=== PATIENT | male | born 1950 | race Caucasian/White ===

== ENCOUNTER → 2018-01-11 | Outpatient (CLI) | payer MEDICARE, MEDICAID ==
[~2018-01-11] MED LIST: ACETAMINOPHEN-1 EAC2 ORAL; ACYCLOVIR400 MG ORAL; ALBUTEROL SULF8.5 GM INH; ALBUTEROL SULFAT2 MG PO; ASPIRIN500 MG ORAL; ATORVASTATIN CA20 MG ORAL; BACTRIM-DS1 EA ORAL; CITALOPRAM HBR20 M1 ORAL; DAILY VITAMIN1 EAC4 PO; EPZICOM1 TAB ORAL; FANAPT6 MG ORAL; ISENTRESS400 MG ORAL; LEVAQUIN500 MG ORAL; LEVAQUIN750 MG ORAL; NUVIGIL250 MG PO; OMEPRAZOLE20 M3 ORAL; PERCOCET1 TAB ORAL; PREDNISONE50 MG ORAL; RANEXA500 MG ORAL; RISPERDAL2 MG ORAL; SEROSTIM6 M1 SQ; SIMVASTATIN40 MG ORAL; TRICOR145 MG ORAL
--- NOTE | 2018-01-11 16:18 | Diagnostic Imaging Report ---
Indication: Back pain Technique: MRI examination of the Lumbar spine was performed in a 1.5 Tiera magnet. Sequences obtained include sagittal and axial T1 and T2 fast spin echo, and sagittal STIR. Comparison: none Findings: L1-2: There is disc desiccation narrowing and mild concentric disc bulge. There is no central stenosis of the canal. There is mild facet arthropathy present. L2-3: Mild concentric disc bulge and mild to moderate facet arthropathy demonstrated. Mild narrowing of the neural foramen bilaterally. No central stenosis. L3-4: Mild narrowing of the disc and moderate concentric disc bulge demonstrated. Moderate facet arthropathy demonstrated. Mild narrowing of the lateral recess due to facet arthropathy. Mild to moderate neural foraminal stenosis bilaterally probably slightly worse on the right. L4-5: Moderate concentric disc bulge with moderate narrowing desiccation of the intervertebral disc. Moderate facet arthropathy demonstrated. No central canal stenosis. Moderate bilateral foraminal stenosis. L5-S1: Posterior slightly left paracentral disc extrusion demonstrated at this level. Narrowing and desiccation of the discs noted. Slight upward subligamentous extension of disc material noted. Narrowing of the left lateral recess demonstrated with slight compression of the traversing left S1 nerve root. No significant central canal stenosis. Also there is mild bilateral foraminal stenosis. Moderate facet arthropathy demonstrated. Bone marrow signal is essentially normal. There is no malalignment or soft tissue abnormalities. IMPRESSION: Age indeterminant central to left paracentral disc extrusion at L5-S1 with slight compression of the left traversing S1 nerve root and narrowing of the left lateral recess. Moderate disc disease at this level with mild bilateral neural foraminal stenosis. L4-5: Moderate bilateral foraminal stenosis L3-4: Mild lateral recess and mild to moderate bilateral foraminal stenosis slightly worse on the right. L2-3: Mild bilateral foraminal stenosis.
--- NOTE | 2018-01-11 16:28 | Diagnostic Imaging Report ---
Indication: Right Hip and pelvis pain. 67-year-old male no history of trauma Technique: MRI examination of the pelvis and right hip was performed in a 1.5 Tiera magnet. Sequences obtained include multiplanar T1 and T2 fast spin echo, and STIR. Comparison: none Findings: There is no evidence of the a hip fracture. Bone marrow signal is essentially normal. There is some heterogeneity due to some retention of red marrow. Visualized pelvic bones demonstrate normal bone marrow signal. With regard to the right hip there is evidence of a moderate arthrosis with marginal enthesophyte formation and joint space narrowing. The acetabular labrum is not identified and presumably degenerated. There is no evidence of AVN. No joint effusion seen. The musculotendinous structures about the right hip appear unremarkable. No evidence of bursitis or tenosynovitis. There is a rounded structure in the right aspect of the scrotal sac measuring 3 cm. This appears to be an implanted device and may be a part of a penile prosthesis. Correlate clinically. There are degenerative changes of the lower lumbar spine with disc desiccation and narrowing and endplate spur formation. The inguinal canal appears asymmetric with prominence on the left, suspicious for a left inguinal hernia. IMPRESSION: Moderate arthrosis involving both hips. No evidence of a hip fracture, AVN or other acute processes. Penile prosthesis Small left inguinal hernia suspected. Correlate clinically.
== END | disposition home or self-care (01) ==
LOC: MRI 14:30
DX: M25.551 Pain in right hip (principal); R10.2 Pelvic and perineal pain; K40.90 Unilateral inguinal hernia, without obstruction or gangrene, not specified as recurrent; M16.0 Bilateral primary osteoarthritis of hip; M48.061 Spinal stenosis, lumbar region without neurogenic claudication
CPT/HCPCS: 72148

== ENCOUNTER 2019-02-21 14:21 | Outpatient (CLI) | payer MEDICARE, MEDICAID ==
[~2019-02-21 14:21] MED LIST changes: +ANORO ELLIPTA1 EACH INH; +ASPIR 8181 MG ORAL; +CELEXA10 MG ORAL; +FANAPT8 MG ORAL; +LAMOTRIGINE100 M1 PO; +LAMOTRIGINE200 MG PO; +PERCOCET 10-321 EAC1 PO
--- NOTE | 2019-02-22 16:23 | Diagnostic Imaging Report ---
Indication: Left hip pain Technique: Coronal and axial T 1 fast echo of the bilateral hips, coronal and axial bilateral hip FSE IR, sagittal, coronal, and oblique proton-density fat-saturated images obtained of the pelvis and left hip Comparison: Pelvic sequences from prior right hip study dated 01/11/2018 Findings: Degenerative changes of the left hip are noted, with subchondral cyst formation, thinning of the cartilage, and narrowing of the joint space. There is also osteophytic lipping of the acetabulum. The extent of this appears similar to the previous exam. The labrum is poorly visualized, likely degenerated. No marrow abnormality to suggest fracture or infiltrative process demonstrated. No evidence of significant joint effusion or bursitis. The greater trochanter gluteal tendon complex appears unremarkable. Incidentally noted is a penile prosthesis. Impression: Left hip degenerative changes, appearing similar to prior exam of 01/11/2018 No acute abnormality Poorly visualized labrum, likely degenerated Penile prosthesis again demonstrated This agrees with the preliminary interpretation provided by Dr. Vera
== END 2019-02-21 16:21 | disposition home or self-care (01) ==
LOC: MRI 14:21
DX: M25.552 Pain in left hip (principal); M54.12 Radiculopathy, cervical region

== ENCOUNTER → 2020-04-02 | Day surgery (SDC) | payer MEDICARE, MEDICAID ==
[2020-04-02] VITALS (15 sets, daily range): BP systolic 91–149; BP diastolic 7–84
[~2020-04-02] VITALS: Ht 180.3 cm; Wt 83.9 kg
[~2020-04-02] MED LIST changes: +ATIVAN1 MG ORAL; +Atropine Sulfate 0.4mg/ml inj IVP PRN; +Bacitracin 50000 Units Vial ONE; +D5 1/2NS 1,000 ML IV SCH; +DiphenhydrAMINE 50mg/ml Inj IVP PRN; +HYDROcodone/Acetamin 5/325 tab ORAL PRN; +HYDROcodone/Acetamin 7.5/325 tab ORAL PRN; +HYDROmorphone 1mg/ml Carpuject SUBQ PRN; +Hydromorphone 0.5mg/0.5ml inj IVP PRN; +JULUCA 50-25 M1 EACH PO; +Ketorolac 30mg Inj IV PRN; +LORazepam Inj 2mg/ml 1ml IV PRN; +LR 1000ml 1,000 ML IVLG SCH; +LR 1000ml ONE; +Labetalol 5mg/ml 20ml vial IV PRN; +Lidocaine 1% 10mg/ml/Epi 0.005mg/ml 30ml vial INJ ONE; +Lidocaine 1% MPF 10mg/ml 5ml ONE; +Meperidine 25mg/0.5ml Inj (FOR RIGORS ONLY) IV PRN; +Metoclopramide 10mg/2ml Inj IVP PRN; +Midazolam 2mg/2ml Inj IVP PRN; +Midazolam 2mg/2ml Inj ONE; +NS Irrig 1000ml ONE; +NeoSporin Gu Irrig 1ml Amp IRRIG ONE; +OXYCODONE-ACET1 EAC5 ORAL; +Sodium Chloride 10ml vial INJ ONE; +Sterile Water Irrig 1000ml IRRIG ONE; +Tylenol #3 tab (300mg/30mg) ORAL PRN; +fentaNYL 100 mcg/2 mL IV ONE; +fentaNYL 100 mcg/2 mL IV PRN; +oxyCODONE HCL/Acetaminophen 5/325mg ORAL PRN
--- NOTE | 2020-04-02 12:12 | Anethesia Preoperative Eval ---
Anesthesia Pre-op PMH/ROS General Date of Evaluation: Apr 02, 2020 Time of Evaluation: 12:08 Anesthesiologist: Angus ASA Score: ASA 3 Mallampati Score Class I : Soft palate, uvula, fauces, pillars visible Class II: Soft palate, uvula, fauces visible Class III: Soft palate, base of uvula visible Class IV: Only hard plate visible Mallampati Classification: Class II Surgeon: Marjorie Diagnosis: Left Leg Pain Surgical Procedure: Excision Lower Extremity, L Thigh Anesthesia History: none Family History: no anesthesia problems Allergies: Coded Allergies: No Known Allergies (Unverified , 03/03/13) Medications: see eMAR Patient NPO?: Yes Past Medical History Cardiovascular: Reports: HTN Pulmonary: Reports: asthma, COPD, other - Bronchitis, PNA Gastrointestinal/Genitourinary: Reports: GERD, other - HEP A&B Neurologic/Psychiatric: Reports: depression/anxiety Hematology/Immune: Reports: other - HIV/AIDS Musculoskeletal/Integumentary: Reports: other - Peripheral Neuropathy, Muscle Weakness PSxH Narrative: R Testes Removed Anesthesia Pre-op Phys. Exam Physician Exam Last Vital Signs Date Time Temp Pulse Resp B/P (MAP) Pulse Ox O2 Delivery O2 Flow Rate FiO2 04/02/20 11:50 96.6 68 18 137/74 97 Room Air Constitutional: NAD Neurologic: CN 2-12 intact Cardiovascular: RRR Respiratory: CTA Gastrointestinal: S/NT/ND Airway Exam Mallampati Score: Class II MO: full ROM: limited Teeth: missing, intact Anesthesia Pre-op A/P Risk Assessment & Plan Assessment: ASA 3 Plan: GA, SED Status Change Before Surgery: No Pre-Antibiotics Dru Grams Ancef IV Given Within 1 Hr of Incision: Yes Time Given: 12:36 Gene Brito MD Apr 02, 2020 12:11
--- NOTE | 2020-04-02 12:16 | Immediate Post-Op Evaluation ---
Immediate Post-Op Evalulation Immediate Post-Op Evalulation Procedure: Excision Lower Extremity, L Thigh Date of Evaluation: Apr 02, 2020 Time of Evaluation: 13:39 IV Fluids: 700 LR Blood Products: 0 Estimated Blood Loss: 20 Urinary Output: 0 Blood Pressure Systolic: 91 Blood Pressure Diastolic: 63 Pulse Rate: 79 Respiratory Rate: 16 O2 Sat by Pulse Oximetry: 100 Temperature (Fahrenheit): 98.4 Pain Score (1-10): 2 Nausea: No Vomiting: No Complications 0 Patient Status: awake, reacts, patent, none Hydration Status: adequate Dru grams Ancef IV Given Within 1 Hr of Incision: Yes Time Given: 12:36 Gene Brito MD Apr 02, 2020 12:16
--- NOTE | 2020-04-02 12:17 | 48 Hour Post Anesthesia Eval ---
Post Anesthesia Evaluation Procedure: Excision Lower Extremity, L Thigh Date of Evaluation: Apr 02, 2020 Time of Evaluation: 15:46 Blood Pressure Systolic: 128 0: 81 Pulse Rate: 63 Respiratory Rate: 18 Temperature (Fahrenheit): 98.5 O2 Sat by Pulse Oximetry: 100 Airway: patent Nausea: No Vomiting: No Pain Intensity: 1 Hydration Status: adequate Cardiopulmonary Status: Stable Mental Status/LOC: patient returned to baseline Follow-up Care/Observations: 0 Post-Anesthesia Complications: 0 Follow-up care needed: ready to discharge Gene Brito MD Apr 02, 2020 12:17
--- NOTE | 2020-04-02 12:31 | Pre-Procedure Note/Attestation ---
Pre-Procedure Note/Attestation Complete Prior to Procedure Procedure Narrative: excision of left thigh mass / biopsy Indications for Procedure Pre-Operative Diagnosis: left thigh mass atypical Attestation I attest that I discussed the nature of the procedure; its benefits; risks and complications; and alternatives (and the risks and benefits of such alternatives ), prior to the procedure, with the patient (or the patient's legal union representative). I attest that, if there was a reasonable possibility of needing a blood transfusion, the patient (or the patient's legal union representative) was given the [facility] standardized written summary, pursuant to the Thomas Raúl Blood Safety Act ([place] Health and Safety Code # 1645, as amended). I attest that I re-evaluated the patient just prior to the surgery and that there has been no change in the patient's H&P, except as documented below: Mau Amador Apr 02, 2020 12:31
--- NOTE | 2020-04-02 13:30 | Brief Operative Note ---
Immediate Post Operative Note Operative Note Pre-op Diagnosis: left thigh mass atypical Procedure: incisional biopsy of left thigh atypical mass Post-op Diagnosis: same as pre-op Surgeon: kiki amador md Anesthesiologist: chao johnson md Anesthesia: general, local Specimen: yes Complications: none Condition: stable Fluids: see records Estimated Blood Loss: minimal Drains: none Implant(s) used?: No Kiki Amador Apr 02, 2020 13:30
--- NOTE | 2020-04-02 16:00 | Operative Note - Dictated ---
DATE OF OPERATION: 04/02/2020 PREOPERATIVE DIAGNOSIS: Atypical left thigh mass POSTOPERATIVE DIAGNOSIS: Atypical left thigh mass, medial, mid thigh 6cm x 5cm raised. OPERATION PERFORMED: 1. Excisional biopsy of left thigh mass down to muscle en bloc 2. Left thigh fascia and muscle biopsy along with mass 3. Adjacent tissue transfer with fascial and skin flap for tension-free complex primary closure ATTENDING SURGEON: Mau Amador MD. MATERIAL DISPATCHER: None. ANESTHESIOLOGIST: Gene Brito MD. ANESTHESIA: General GETA plus local. ESTIMATED BLOOD LOSS: Minimal. IV FLUIDS: Please see anesthesia records. COMPLICATIONS: None. DRAINS: None. COUNTS: Sponge and needle count correct x2. WOUND CLASSIFICATION: Class 1. ANTIBIOTICS: 2 g Ancef. SPECIMENS: Sent to pathology for review. INDICATIONS FOR PROCEDURE: This is a 69-year-old male, who for some time now has identified a left thigh mass with superficial skin lesion initially noted to be small years ago, which time he received laser hair therapy and laser treatment in hopes of eliminating the atypical skin abnormality, but over years, it has grown and become large and at times draining. He was referred to me by his primary care physician who astutely identified an atypical abnormal mass in the left mid thigh medial anterior aspect and the patient was seen in the office and identified to have atypical mass Which was concerning and mass was fairly superficial in nature on examination. Therefore, decision was made to proceed with an surgical intervention, but given patient's history, condition, and well-being, decision was made to perform in operating room given location and to ensure patient's comfort and safety. Consent was obtained. The patient was scheduled for 04/02/2020. OPERATIVE NOTE: Patient was taken to the operating room and placed on the operating table in supine position with bilateral arms out. All bony prominences were well padded. SCDs placed. Preoperative time-out taken identifying the patient, procedure, operative site, and surgical staff. General anesthesia was induced. The patient was intubated with LMA. The left thigh was prepped and draped in standard surgical fashion. An elliptical incision was made around the skin lesion. Local anesthetic was infiltrated. Incision was made and the abnormal tissue was identified. Once making the incision, it was then identifiable that this abnormality extended through the subcutaneous tissue towards down to the fascia and deep to the fascia into muscle. Fascial and muscle excision was planned and the tissue was identified to be going through the muscle. A portion of muscle and the stalk of the abnormality were excised. clips applied for anatomic marking at the stalk. The orientation of the biopsy was made and sent to pathology for review. Wound bed was irrigated. Fascia flap was made medially and laterally superior and inferiorly to allow for appropriate closure without tension. A relaxing incision was made on the anterior aspect of the fascia overlying the quads. the fascia was was then reapproximated using 2-0 Vicryl sutures. Skin and subcutaneous skin flaps were then made to allow for tension-free approximation over the fascia and the subcutaneous tissue was reapproximated using 3-0 Vicryl sutures and reapproximation of the skin incision using 4-0 Monocryl running subcuticular suture. In total, the size of the excision was approximately 5 cm x 6 cm x 3 cm deep. The patient tolerated the procedure well, was extubated, and was taken to postanesthesia care unit in stable condition. Mau Amador M.D. DR: MAYURI JOB#: [id number] CC: HECTOR
== END | disposition home or self-care (01) ==
LOC: SUR 10:49
DX: R22.42 Localized swelling, mass and lump, left lower limb (principal); L98.9 Disorder of the skin and subcutaneous tissue, unspecified; I10 Essential (primary) hypertension; J44.9 Chronic obstructive pulmonary disease, unspecified; K21.9 Gastro-esophageal reflux disease without esophagitis; B20 Human immunodeficiency virus [HIV] disease; G62.9 Polyneuropathy, unspecified; Z86.19 Personal history of other infectious and parasitic diseases
CPT/HCPCS: 11106; 11107; J0690; J1100; J1885; J2250; J2405; J2704; J3010; J7120; U0002

== ENCOUNTER 2020-07-06 16:46 | Emergency (ER) | payer MEDICAID, MEDICARE ==
[~2020-07-06] VITALS: Ht 182.9 cm; Wt 86.2 kg
[~2020-07-06 16:46] MED LIST changes: -Atropine Sulfate 0.4mg/ml inj IVP PRN; -Bacitracin 50000 Units Vial ONE; -D5 1/2NS 1,000 ML IV SCH; -DiphenhydrAMINE 50mg/ml Inj IVP PRN; -HYDROcodone/Acetamin 5/325 tab ORAL PRN; -HYDROcodone/Acetamin 7.5/325 tab ORAL PRN; -HYDROmorphone 1mg/ml Carpuject SUBQ PRN; -Hydromorphone 0.5mg/0.5ml inj IVP PRN; -Ketorolac 30mg Inj IV PRN; -LORazepam Inj 2mg/ml 1ml IV PRN; -LR 1000ml 1,000 ML IVLG SCH; -LR 1000ml ONE; -Labetalol 5mg/ml 20ml vial IV PRN; -Lidocaine 1% 10mg/ml/Epi 0.005mg/ml 30ml vial INJ ONE; -Lidocaine 1% MPF 10mg/ml 5ml ONE; -Meperidine 25mg/0.5ml Inj (FOR RIGORS ONLY) IV PRN; -Metoclopramide 10mg/2ml Inj IVP PRN; -Midazolam 2mg/2ml Inj IVP PRN; -Midazolam 2mg/2ml Inj ONE; -NS Irrig 1000ml ONE; -NeoSporin Gu Irrig 1ml Amp IRRIG ONE; -Sodium Chloride 10ml vial INJ ONE; -Sterile Water Irrig 1000ml IRRIG ONE; -Tylenol #3 tab (300mg/30mg) ORAL PRN; -fentaNYL 100 mcg/2 mL IV ONE; -fentaNYL 100 mcg/2 mL IV PRN; -oxyCODONE HCL/Acetaminophen 5/325mg ORAL PRN
--- NOTE | 2020-07-06 16:50 | NUR ---
ED Nurse Note: pt arrives via [facility] from home after sustaining a slip and fall while going up steps. no head trauma per ems. pt c/o left forearm, left leg/knee pain down to ankle. c/o neck pain. pt able to ambulate upon ems arrival. pt a/ox4 at triage. pt eval by md upon arrival
--- NOTE | 2020-07-06 16:58 | Emergency Room Report ---
History of Present Illness General Chief Complaint: Multiple Trauma/Fall Source: Patient Present Illness HPI Disclaimer: Please note that this report is being documented using [employer] technology. This can lead to erroneous entry secondary to incorrect interpretation by the dictating instrument. HPI: 69-year-old male presents for evaluation after a fall. He is complaining of neck pain and left knee pain. Patient slipped on wet wooden stairs going up to his neighbors porch. Denies loss of conscious. Unsure whether or not he hit his head. He is complaining of pain mostly on the left and right side of his neck and upper shoulders. States pain is exacerbated by bending or twisting his neck. Also complaining pain over the medial aspect of the left knee. Denies prior surgery or injury to that knee. Originally complaining of pain over the right ankle but this is improved. He was ambulatory for EMS on their arrival. Vital signs were stable en route. No seizure activity reported. He is not take anticoagulants. PMH: Reviewed PSH: Reviewed Allergies: Reviewed Social Hx: Reviewed Allergies: Coded Allergies: No Known Allergies (Unverified , 03/03/13) COVID-19 Screening Contact w/high risk pt: No Experienced COVID-19 symptoms?: No COVID-19 Testing performed CONSULTATIVE SALES ASSOCIATE: No Nursing Documentation-PMH Past Medical History: No History, Except For Hx Cardiac Problems: Yes - HIV since 1990 Hx Hypertension: No - PNA Hx Pacemaker: No Hx Asthma: Yes Hx COPD: Yes Hx Diabetes: No Hx Cancer: Yes - Skin CA ; back in 1995, face 5 years ago Hx Gastrointestinal Problems: Yes - GERD Hx Dialysis: No Hx Neurological Problems: Yes - peripheral Neuropathy Hx Cerebrovascular Accident: No Hx Seizures: No Hx Peripheral Neuropathy: Yes Hx Headaches: Yes Hx Weakness: Yes Hx Fatigue: Yes Review of Systems All Other Systems: negative except mentioned in HPI Physical Exam Vital Signs Date Time Temp Pulse Resp B/P (MAP) Pulse Ox O2 Delivery O2 Flow Rate FiO2 07/06/20 16:45 98.1 82 17 130/90 (103) 99 Room Air General: Awake and alert, no acute distress HEENT: NC/AT. EOMI. Cardiovascular: RRR. S1 and S2 normal. No murmur appreciated Resp: Normal work of breathing. No cough, wheezing or crackles appreciated Abdomen: Abdomen is soft, nondistended. Nontender Skin: Intact. No abrasions, laceration or rash over the exposed skin MSK: Normal tone and bulk. Moving all extremities. No obvious deformity. Left knee is in anatomic position with no overlying edema erythema skin breakdown. There is tenderness palpation over the medial aspect of the knee without laxity. No tenderness over the posterior aspect of the medial or lateral malleolus of the right ankle. Able to flex and extend. No midfoot tenderness. Neuro: Awake and alert. Mentating appropriately. Spine: Mild tenderness in the lower cervical spine without palpable deformity. No significant tenderness in the thoracic spine. Moderate paraspinal tenderness extending over the trapezius muscles bilaterally. Medical Decision Making Diagnostic Impression: Primary Impression: Cervical paraspinal muscle spasm Additional Impressions: Herniated cervical disc Spondylolisthesis Knee contusion ER Course Is a 69-year-old male presenting for evaluation of neck pain and knee pain after a fall from standing. Concern for intracranial spinal injury as well as possible osseous injury to the right knee. CT scans of the head and cervical spine were obtained as well as x-ray of the left knee. The right ankle does not show signs of significant injury and does not require imaging according to [place] ankle rules. No intracranial injury was identified. In the cervical spine there is no fracture or malalignment but there was straightening of the cervical spine consistent with patient's exam. There was noted to be multilevel spondylosis and degenerative disc changes with disc herniation consistent the patient's history. He states he is or chronic. Patient is neurologically intact. His exam and imaging is most consistent with cervical strain and spasm. No fracture identified in the knee. Likely contusion. Will treat with Tylenol, Motrin, Robaxin and lidocaine patches. Patient given copies of his CT to discuss with his PMD. He received analgesics and lidocaine patches in the emergency department. Reports feeling much better. Ambulating without difficulty. Stable for outpatient follow-up. Instructed to return with new or worsening symptoms. He understands and agrees with the treatment plan. Other X-Ray Diagnostic Results Other X-Ray Diagnostic Results : X-Ray ordered: Left knee # of Views/Limited Vs Complete: Complete Indication: Pain EP Interpretation: Yes Interpretation: no dislocation, no soft tissue swelling, no fractures, other - Scattered calcifications Impression: No acute disease Electronically Signed by: Electronically signed by Dr. Massimo Salgado MD CT/MRI/US Diagnostic Results CT/MRI/US Diagnostic Results : Impression Final Report History: INJ Exam: CT HEAD Without Contrast Technique more: CTDI is 53.4 mGy and DLP is 1045.5 mGy-cm. Technique more: One or more of the following dose reduction techniques were used: automated exposure control, adjustment of the mA and/or kV according to patient size, use of iterative reconstruction technique. Comparison: FINDINGS: No intracranial hemorrhage, mass effect or calvarial fracture. The ventricles are within limits and midline. Visualized paranasal sinuses, mastoids and orbits appear within limits. Convexity scalp soft tissue swelling. IMPRESSION: No intracranial hemorrhage, mass effect or calvarial fracture. Convexity scalp soft tissue swelling. Radiologist: Mendoza Carter M.D. Electronically Signed: 07/06/20 17:53 Study ready at 17:35 and initial results transmitted at 17:53 Final Report History: INJ Exam: CT C SPINE Without Contrast Technique more: CTDI is 20.2 mGy and DLP is 614.0 mGy-cm. Technique more: One or more of the following dose reduction techniques were used: automated exposure control, adjustment of the mA and/or kV according to patient size, use of iterative reconstruction technique. Comparison: FINDINGS: No fracture or malalignment. Straightening may represent position or spasm. No evidence of prevertebral swelling. Multilevel spondylosis/discogenic change with posterior disc osteophyte complexes and bilateral foraminal narrowing. Appearance of a left paracentral disc herniation at C3-4 measuring approximately 1 cm width, 6 mm AP dimension and 1.1 cm CC dimension axial 51 and sagittal 54, clinically correlate. Very small central disc protrusion suggested C4-5. Bilateral left more than right carotid calcific plaque formation noted. Apical emphysema and pleuroparenchymal scarring at the visualized apices. IMPRESSION: No fracture or malalignment. Straightening may represent position or spasm. No evidence of prevertebral swelling. Multilevel spondylosis/discogenic change with posterior disc osteophyte complexes and bilateral foraminal narrowing. Appearance of a left paracentral disc herniation at C3-4 measuring approximately 1 cm width, 6 mm AP dimension and 1.1 cm CC dimension axial 51 and sagittal 54, clinically correlate for possible signs and symptoms of an acute disc injury. Very small central disc protrusion suggested C4-5. Radiologist: Mendoza Carter M.D. Electronically Signed: 07/06/20 18:12 Study ready at 17:35 and initial results transmitted at 18:12 Last Vital Signs Date Time Temp Pulse Resp B/P (MAP) Pulse Ox O2 Delivery O2 Flow Rate FiO2 07/06/20 16:45 98.1 82 17 130/90 (103) 99 Room Air Disposition: HOME, SELF-CARE Condition: Stable Scripts Acetaminophen* (TYLENOL EXTRA STRENGTH*) 500 Mg Tablet 500 MG ORAL Q8H PRN for Prn Headache/Temp > 101, #30 TAB 0 Refills Prov: Massimo Salgado MD 07/06/20 Lidocaine Patch* (Lidoderm Patch*) 1 Each Adh..patch 1 PATCH TOPIC DAILY, #30 PATCH Patch(es) may remain in place for up to 12 hours in any 24-hour period. Prov: Massimo Salgado MD 07/06/20 Methocarbamol* (ROBAXIN-750*) 750 Mg Tablet 750 MG PO TID, #21 TAB 0 Refills Prov: Massimo Salgado MD 07/06/20 Ibuprofen* (MOTRIN*) 600 Mg Tablet 600 MG ORAL Q6H PRN for For Pain, #30 TAB 0 Refills Prov: Massimo Salgado MD 07/06/20 Massimo Salgado MD Jul 06, 2020 16:58
[2020-07-06] MEDS ORDERED: Morphine Sulfate 2mg/ml Inj(IV/IM USE ONLY) IM ONE (17:00)
--- NOTE | 2020-07-06 17:13 | NUR ---
ED Nurse Note: pt to ct scan via juan frye.
--- NOTE | 2020-07-06 17:33 | NUR ---
ED Nurse Note: pt returned from ct scan. relates pain has decreased.
--- NOTE | 2020-07-06 17:53 | Diagnostic Imaging Report ---
History: INJ Exam: CT HEAD Without Contrast Technique more: CTDI is 53.4 mGy and DLP is 1045.5 mGy-cm. Technique more: One or more of the following dose reduction techniques were used: automated exposure control, adjustment of the mA and/or kV according to patient size, use of iterative reconstruction technique. Comparison: FINDINGS: No intracranial hemorrhage, mass effect or calvarial fracture. The ventricles are within limits and midline. Visualized paranasal sinuses, mastoids and orbits appear within limits. Convexity scalp soft tissue swelling. IMPRESSION: No intracranial hemorrhage, mass effect or calvarial fracture. Convexity scalp soft tissue swelling.
--- NOTE | 2020-07-06 18:12 | Diagnostic Imaging Report ---
History: INJ Exam: CT C SPINE Without Contrast Technique more: CTDI is 20.2 mGy and DLP is 614.0 mGy-cm. Technique more: One or more of the following dose reduction techniques were used: automated exposure control, adjustment of the mA and/or kV according to patient size, use of iterative reconstruction technique. Comparison: FINDINGS: No fracture or malalignment. Straightening may represent position or spasm. No evidence of prevertebral swelling. Multilevel spondylosis/discogenic change with posterior disc osteophyte complexes and bilateral foraminal narrowing. Appearance of a left paracentral disc herniation at C3-4 measuring approximately 1 cm width, 6 mm AP dimension and 1.1 cm CC dimension axial 51 and sagittal 54, clinically correlate. Very small central disc protrusion suggested C4-5. Bilateral left more than right carotid calcific plaque formation noted. Apical emphysema and pleuroparenchymal scarring at the visualized apices. IMPRESSION: No fracture or malalignment. Straightening may represent position or spasm. No evidence of prevertebral swelling. Multilevel spondylosis/discogenic change with posterior disc osteophyte complexes and bilateral foraminal narrowing. Appearance of a left paracentral disc herniation at C3-4 measuring approximately 1 cm width, 6 mm AP dimension and 1.1 cm CC dimension axial 51 and sagittal 54, clinically correlate for possible signs and symptoms of an acute disc injury. Very small central disc protrusion suggested C4-5.
[2020-07-06] MEDS ORDERED: ROBAXIN-750750 MG PO (18:19)
[2020-07-06] MEDS ORDERED: LIDODERM700 M1 TOPIC (18:19)
[2020-07-06] MEDS ORDERED: TYLENOL EXTRA500 MG ORAL (18:19)
[2020-07-06] MEDS ORDERED: IBUPROFEN600 M1 ORAL (18:19)
--- NOTE | 2020-07-06 18:35 | NUR ---
ED Nurse Note: pt awaiting further dispo for yara padron.
[2020-07-06 19:10] VITALS: BP 128/89
--- NOTE | 2020-07-06 19:10 | NUR ---
ER DISCHARGE NOTE: Patient is cleared to be discharged per ERMD, pt is aox4, on room air, with stable vital signs. pt was given dc instructions, pt was able to verbalize understanding, pt id band removed. pt is able to ambulate with steady gait. pt took all belongings. pt stable upon discharge.
--- NOTE | 2020-07-07 14:39 | Diagnostic Imaging Report ---
Indication: Pain, trauma Technique: 3 views of the left knee Comparison: None Findings: No suprapatellar effusion. No acute fractures. No dislocations. The joint spaces are preserved. Impression: Negative
== END 2020-07-06 19:10 | disposition home or self-care (01) ==
LOC: EDBD 16:46 → EMR 17:10
DX: R25.2 Cramp and spasm (principal); M47.9 Spondylosis, unspecified; S80.02XA Contusion of left knee, initial encounter; W01.0XXA Fall on same level from slipping, tripping and stumbling without subsequent striking against object, initial encounter; Y92.9 Unspecified place or not applicable; J44.9 Chronic obstructive pulmonary disease, unspecified; B20 Human immunodeficiency virus [HIV] disease; Z85.828 Personal history of other malignant neoplasm of skin; K21.9 Gastro-esophageal reflux disease without esophagitis; G62.9 Polyneuropathy, unspecified; M50.20 Other cervical disc displacement, unspecified cervical region
CPT/HCPCS: 70450; 72125; 73562; 96372; 99284; J2270